=== PATIENT | female | born 1955 | race Caucasian/White ===

== ENCOUNTER → 2023-11-23 09:23 | Outpatient (REF) | payer MEDICARE, OTHER, SELFPAY | LOC: HWRAD 09:23 | PROVIDERS: ATTENDING PHYSICIAN Physician Assistant; FAMILY PHYSICIAN Family Medicine | DX: R10.11 Right upper quadrant pain (principal) | CPT/HCPCS: 76700 ==

== ENCOUNTER → 2023-11-27 15:02 | Outpatient (REF) | payer MEDICARE, OTHER, SELFPAY | LOC: RAD 15:02 | PROVIDERS: ATTENDING PHYSICIAN Family Medicine | DX: G45.9 Transient cerebral ischemic attack, unspecified (principal); R47.01 Aphasia; R09.89 Other specified symptoms and signs involving the circulatory and respiratory systems | CPT/HCPCS: 93880 ==

== ENCOUNTER 2023-12-03 05:51 | Inpatient (IN) | payer MEDICARE, OTHER, SELFPAY ==
[2023-12-03] VITALS (24 sets, daily range): BP systolic 88–130; BP diastolic 53–85; BMI 22.9; BMI 23.7
--- NOTE | 2023-12-03 06:58 | W.SUR.PREOP ---
Pre-Operative Surgical Note
-
I have examined this patient prior to the performance of the scheduled procedure.
The patient's condition is unchanged from the time of the current History and
Physical and the patient is able to undergo the scheduled procedure.
[2023-12-03 07:04] LABS: Hematocrit 42.8 % (37.0-47.0); Hemoglobin 14.9 g/dL (12.0-16.0); Mean Corp Hgb Conc. 34.8 g/dL (33.0-37.0); Mean Corpuscular Hgb 29.9 pg (27.0-31.0); Mean Corpuscular Volume 85.8 fL (81.0-99.0); Mean Platelet Volume 10.7 fL (7.4-10.4); Platelet Count 191 10^3/uL (130-400); Red Blood Cell Count 4.99 10^6/uL (4.20-5.40); Red Cell Dist. Width 12.7 % (11.5-14.5); White Blood Cell Count 7.7 10^3/uL (4.8-10.8)
[2023-12-03 07:05] LABS: INR 1.01; PT 13.1 Sec (11.4-14.6)
[2023-12-03] MEDS: BACTROBAN NASAL 1 GRAM NASAL (07:14)
[2023-12-03 07:51] LABS: Blood Urea Nitrogen 15 mg/dl (7-17); Calcium 9.7 mg/dl (8.4-10.2); Carbon Dioxide 24 mmol/L (22-30); Chloride 106 mmol/L (98-107); Estimated Creatinine Clearance 63 ml/min; Glucose 103 mg/dl (70-99); Potassium 4.6 mmol/L (3.5-5.1); Sodium 135 mmol/L (135-145); eGFR > 60.00
--- NOTE | 2023-12-03 09:22 | W.SUR.POST ---
Surgical Immediate Post Op
Note
Pre Op Diagnosis: Carotid stenosis
Post Op Diagnosis: Same
Procedure Performed: Left carotid endarterectomy with bovine pericardial patch angioplasty and EEG monitoring
Primary Surgeon: Kit
Assist: Alissa ROTH
Anesthesia: General
Estimated Blood Loss: 10cc
Fluids: See anesthesia flow sheet
Drains/Shunts: None
Specimens/Cultures: Left carotid plaque
Doppler/Duplex/Angio (Y/N): Y
Complications: None
Operative Findings: Woke from anesthesia moving all extremities
--- NOTE | 2023-12-03 09:27 | OR.RPT ---
Operative Report
Operative Report
PROCEDURE DATE: 12/03/2023
Preoperative diagnosis: Symptomatic left carotid artery critical stenosis.
Postoperative diagnosis: Same
Procedure: Left carotid endarterectomy with bovine pericardial patch angioplasty and intraoperative EEG/SSEP monitoring.
Surgeon: Kit
Electric Razor Assembler: JOSÉ Maxwell required for all aspects of procedure including assistance with traction/countertraction, following of suture line, assistance with closure.
Complications: None
Anesthesia: General
Indications for procedure:
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 Risk/benefits/alternatives of expedient revascularization were all fully discussed. Patient understood all wish to
proceed with left carotid endarterectomy.
Description of procedure:
Patient was identified brought to the operating room placed on the table in supine position. After the adequate administration of anesthesia and perioperative antibiotics she was prepped and draped in the standard surgical fashion. A standard
preoperative timeout was undertaken and everybody was in agreement the plan. A standard longitudinal incision was made in the left neck that was carried through the skin subcutaneous tissue. Using the electrocautery dissection was carried through
the platysma muscle layer and then alongside the anterior medial border of the sternocleidomastoid muscle. Then using a combination of sharp dissection with the Metzenbaum scissors and electrocautery I dissected along the anterior medial border of
the internal jugular vein. The common facial vein branch was ligated between silk ties and then divided. I then deepened my retraction. The common carotid artery was identified and carefully dissected away from the surrounding structures take
great care to avoid any injury to the structures. A vessel loop was passed around it which was double looped, but not yet tightened. Note the vagus nerve was not directly visualized as I dissected directly on the common carotid artery, but care
was taken to avoid any dissection or injury in this vicinity. I then continued my dissection up the common carotid artery to the bulb staying only on the anterior surface of the carotid artery. Note, hide identified on preoperative imaging that
the bifurcation was relatively low in the neck. And that is what I found here. Then I carried the dissection up to the internal carotid artery and then to the more distal internal carotid artery. I identified where it was soft and carefully
circumferentially dissected the internal carotid artery with minimal mobilization and passed a vessel loop around it. Note the hypoglossal nerve was not directly visualized in this field, but it was relatively low in the neck that we were
dissecting. In addition, great care was taken to avoid over dissection or any injury in the vicinity of where the nerve would be. The patient was given an appropriate dose of heparin 6000 units. Next I dissected the anterior surface of the
external carotid artery and superior thyroid branches. These were then carefully circumferentially dissected with minimal mobilization and vessel loops passed around these which were double looped but not yet tightened. After 3 minutes of heparin
circulation time and confirmation of optimization of the blood pressure with my anesthesiology colleagues, I clamped the distal internal carotid artery where it was soft. There was no immediate EEG or SSEP changes. After 1 minute of test clamp
time there was no changes noted. Therefore at this point, the vessel loops on the external carotid artery and superior thyroid branches were tightened and the common carotid artery was clamped where it was soft proximally. An arteriotomy was made
on the common carotid artery with an 11 blade and extended using a Marie scissor. I extended the arteriotomy onto the mid to distal internal carotid artery. As noted on the CT scan, at the distal bulb and extending onto the very origin of the
internal carotid artery, there was mixed plaque with hemorrhagic central component. This resulted in a focal high-grade stenosis. More distally, there was slight thickening on the internal carotid artery posterior wall of the intima. A Irving was
then used to endarterectomized the plaque. An endarterectomy plane was created, and the plaque was then endarterectomized. Distally I was able to end the endarterectomy on the internal carotid artery. The posterior wall as noted was still
slightly thickened. I did extend my arteriotomy and move my clamp more cephalad as well to allow this. However I could see that the thickening extended all the way up. Therefore I settled for this endpoint as there is no significant residual
plaque or stenosis. Next I endarterectomized the intima back to normal intima in the common carotid artery, and the intima was cut flush there. I then grasped the plaque and everted plaque out of the origin of the external carotid artery. The
plaque was then sent off for specimen. The origin of the external carotid artery was carefully visualized and any fine debris were removed with fine forceps. Proximal and distal endpoints were then carefully inspected. Any fine debris was removed
with fine forceps, and the intima was noted to be nicely adherent proximally distally. Next any fine debris were removed throughout the endarterectomy bed with fine forceps. Interrupted 7-0 Prolene tacking sutures were placed to tack the distal
endpoint (3 sutures were placed). I then flushed heparinized saline. I was very satisfied. Then, I used a bovine pericardial patch to sew a patch angioplasty with a running 6-0 Prolene suture. Prior to completing and tying down my suture line, I
backbled sequentially each branch and reclamped each branch prior to unclamping the next branch. I then irrigated with heparinized saline. Then I completed and tied down my suture line. We then restored flow in the common carotid and external
carotid arteries. Finally, we released our clamp in the internal carotid artery. There was excellent pulsatile flow in all 3 vessels. There was an excellent Doppler signal in the internal carotid artery distal to the patch with a good normal low
resistance Doppler signal. There was a good Doppler signal in the external carotid artery as well. Three 6-0 Prolene [id number] sutures were placed along any bleeding points along the suture line. Protamine was given to reverse the heparin.
Hemostasis was completely achieved. We then irrigated and confirmed full hemostasis. We then closed in layers with 2-0 Vicryl layer to reapproximate the sternocleidomastoid muscle, followed by 3-0 Vicryl platysma muscle running layer, followed by 4
Monocryl subcuticular stitch. Dermabond was applied. The patient tolerated procedure well. She awoke moving all extremities to command with tongue in the midline.
[2023-12-03 09:58] LABS: Hematocrit 36.9 % (37.0-47.0); Hemoglobin 12.7 g/dL (12.0-16.0); Mean Corp Hgb Conc. 34.4 g/dL (33.0-37.0); Mean Corpuscular Hgb 29.8 pg (27.0-31.0); Mean Corpuscular Volume 86.6 fL (81.0-99.0); Mean Platelet Volume 9.7 fL (7.4-10.4); Platelet Count 200 10^3/uL (130-400); Red Blood Cell Count 4.26 10^6/uL (4.20-5.40); Red Cell Dist. Width 12.8 % (11.5-14.5); White Blood Cell Count 12.2 10^3/uL (4.8-10.8)
[2023-12-03 10:03] LABS: INR 1.13; PT 14.4 Sec (11.4-14.6)
[2023-12-03 10:04] LABS: APTT 28.1 Sec (23.4-35.0)
[2023-12-03] MEDS: SUBLIMAZE 25 MCG IV (10:04)
[2023-12-03 10:08] LABS: Blood Urea Nitrogen 13 mg/dl (7-17); Calcium 8.6 mg/dl (8.4-10.2); Carbon Dioxide 18 mmol/L (22-30); Chloride 108 mmol/L (98-107); Estimated Creatinine Clearance 73 ml/min; Glucose 133 mg/dl (70-99); Potassium 4.1 mmol/L (3.5-5.1); Sodium 134 mmol/L (135-145); eGFR > 60.00
[2023-12-03] MEDS: NSS 1000 IV (10:10)
--- NOTE | 2023-12-03 10:55 | CON.INTV ---
Consultation
Consultation Request
Date/Time Consultation Requested: 12/03/2023 - 923
Date/Time Consultation Performed: 12/03/2023 - 1049
Requesting Provider: GONZALEZ Crawley
Performing Provider: Tanmay Healy MD
Reason for Consultation: s/p CEA
Medical History
-
Chief Complaint: s/p left CEA
History of Present Illness:
68-year-old female former tobacco smoker with a past medical history of ulcerative colitis, hypothyroidism and hyperlipidemia who presents with elective left-sided carotid endarterectomy. Patient known to vascular surgery and saw Dr. Pantoja on
11/30/2023. At that appointment patient discussed left carotid artery stenosis which was severe. Patient also symptomatic. Patient agreed to surgical intervention. Today she underwent left carotid endarterectomy with bovine pericardial patch
angioplasty. Patient underwent procedure with no immediate complications and EBL was 10 mL. She was transferred to the ICU postoperatively and director export service is now consulted for additional management/recommendations.
When I saw the patient she was in bed, in no acute distress with family members at bedside. BP 106/70, heart rate 72 and she is saturating 95% on room air. She has some pain at the postoperative site of her left neck but no headache, chest pain,
shortness of breath, fevers or chills.
PMHx: Ulcerative colitis, hypothyroidism, hyperlipidemia, history of diverticulitis
PSHx: Tubal ligation, skin cancer removal, cataracts, rectal and bladder prolapse surgery (2015)
Past Medical History
Past Medical History: Other (Above as per HPI)
Past Surgical History: Other (Above as per HPI)
Social History
Tobacco: Former Smoker
Alcohol: None
Drug: None
Family History
Family History: CAD (Father)
Allergies / Home Medications
Allergies
Allergy/AdvReac Type Severity Reaction Status Date / Time
Sulfa (Sulfonamide Allergy Rash Verified 12/03/23 05:47
Antibiotics)
sulfisoxazole Allergy Rash Verified 12/03/23 05:47
Home Medications
�Medication �Instructions �Recorded �Confirmed �Last Taken �Type
Bifidobacterium infantis 4 mg 1 cap PO QPM 01/29/15 01/29/15 12/02/23 17:00 History
capsule (Align)
levothyroxine 125 mcg tablet 125 mcg PO DAILY 01/29/15 12/03/23 12/03/23 05:00 History
mesalamine 1.2 gram tablet,delayed 2.4 grams PO DAILY 01/29/15 01/29/15 12/02/23 10:00 History
release (Lialda)
aspirin 81 mg chewable tablet 81 mg PO DAILY 12/03/23 12/03/23 05:00 History
Review of Systems
-
History Source: Patient
All other systems: Negative unless noted
Vitals / Labs / Diagnostic Testing
Vital Signs
Temp Pulse Resp BP Pulse Ox
97.7 F 87 14 109/73 95
12/03/23 11:15 12/03/23 13:30 12/03/23 13:30 12/03/23 13:15 12/03/23 13:30
Lab Data
12/03/23 09:44
12/03/23 09:44
Laboratory Results
12/03/23 12/03/23
06:39 09:44
PT 13.1 14.4
INR 1.01 1.13
APTT 28.1
Diagnostic Testing:
Physical Exam
-
HEENT: Normocephalic, Anicteric and Other (Incision seen on left anterior neck with no exsanguination or purulence appreciated)
Cardiovascular: S1/S2 and Peripheral Edema (negative)
Respiratory: Clear, Wheeze (negative), Rales (negative), Rhonchi (negative) and Non-Labored Respirations
GI: Soft, Non Distended and Non Tender
Neurology: Awake and Alert
Skin: Warm and Dry
General: Respiratory Distress (negative) and Comfortable
Assessment
-
Assessment: 68-year-old female former tobacco smoker with a past medical history of ulcerative colitis, hypothyroidism and hyperlipidemia who presents with elective left-sided carotid endarterectomy. Patient known to vascular surgery and saw "Didier"Kit on 11/30/2023. At that appointment patient discussed left carotid artery stenosis which was severe. Patient also symptomatic. Patient agreed to surgical intervention. On 12/03/2023, she underwent left carotid endarterectomy with bovine
pericardial patch angioplasty. Patient underwent procedure with no immediate complications and EBL was 10 mL. She was transferred to the ICU postoperatively and director export service is now consulted for additional management/recommendations.
Chronic conditions PRODUCTION ILLUSTRATOR:
Ulcerative colitis, hypothyroidism, hyperlipidemia, history of diverticulitis
Impression:
#Severe left-sided carotid artery stenosis s/p CEA (POD #0)
#Leukocytosis � likely reactive due to above
#Mild hyponatremia
#Mild metabolic acidosis
#Ulcerative colitis
Plan:
Postoperative surgical intensive care unit monitoring
Supplemental oxygen as needed
Maintain MAP >65
Incentive spirometry encouraged
Aspiration precautions
Maintain SpO2 >90-94%
Trend serum sodium level and serum bicarbonate
Replete electrolytes with K>4, Mg>2
Maintain euglycemia with goal BG 140-180
Neuro and vascular checks per protocol
Vascular surgery following-correspondence and operative notes reviewed
Resume mesalamine, her home medication
DVT prophylaxis
Early nutrition
Early mobilization
Critical care statement: A total of 44 minutes of critical care time was provided for this patient today. This includes management of unstable vital signs, evaluation of the patient at bedside, reviewing the patient's pertinent medical records
including radiographs, microbiology, laboratory evaluations, and discussion with primary team, consultants, pharmacy, nutrition, physical therapy, case management, charge nurse, critical care nursing, and respiratory therapy.
Data:
CXR 12-03-2023: No acute cardiopulmonary process.
--- NOTE | 2023-12-03 12:00 | PTCARENOTE ---
Rec'd pt at 1100 via bed from PACU. Rec'd pt awake alert and oriented. Speech is clear. Smile is even and tongue protudes midline. LACEY at 2mm. Denies blurred vision or headache/dizziness. NOLASCO. Pt admits to some chronic R arm heaviness/weakness but
none noted currently. Skin is pink wm and dry. L neck incision is approximated with surgical adhesive present. No swelling or drainage. Ice in place x20 min. Respirs are unlabored on RA. Lungs are clear. Monitor SR. + pulses. No edema.R radial A
line is intact. Site wnl. Good CMS checks to distal extrem. Runs about 15-20 mm/hg higher than cuff BP. Zeroed and recalbrated. Waveform as documented. Abd is soft with sl hypoactive BS. Denies nausea. Denies need to void. IV NS infusing at 80 ml/hr
via R AC IV Site. Capped int intact L AC. Family in and updated. Call quiroz in reach. Plan of care reviewed with family and pt
[2023-12-03] MEDS: ROXICODONE 5 MG PO ×2 (12:30→19:54)
--- NOTE | 2023-12-03 12:30 | PTCARENOTE ---
Medicated with Roxicodone 5 mg po for c/o L neck and L tooth soreness. No other changes. L neck incision site is wnl
--- NOTE | 2023-12-03 13:45 | PTCARENOTE ---
Resting, states neck and tooth discomfort are better since the Oxy. Down to a 2. Overall good toleration of clear liquids. Denies nausea. VS as noted.
--- NOTE | 2023-12-03 13:50 | W.PV.INTER ---
VPI Note
Pre Admission Note
Functional Status: Light Work
Ambulation: Ambulate Independently
Pre Op Medications
Pre Op ASA: Yes
Pre Op Statin: No
Pre Op OMAR Inhibitor/ARB: No
Pre Op P2y12 Antagonist: None
Pre Op Beta Blockers: No
Pre Op Chronic Anticoagulant: None
Pre Op Cilostazol: No
Post Op Medications
Post Op ASA: Yes
Post Op Statin: Yes
Post Op OMAR Inhibitor/ARB: No
Post Op P2y12 Antagonist: None
Post Op Beta Blockers: No
Post Op Chronic Anticoagulant: None
Post Op Cilostazol: No
Modified Liberty
Pre Op: 0
Post Op: 0
[2023-12-03 14:56] LABS: ALT (SGPT) 20 U/L (0-35); AST (SGOT) 27 U/L (14-36); Albumin 3.5 g/dl (3.5-5.0); Alkaline Phosphatase 92 U/L (38-126); Direct Bilirubin 0.4 mg/dl (0.0-0.4); Total Bilirubin 0.4 mg/dl (0.2-1.3); Total Protein 5.8 g/dl (6.3-8.2)
[2023-12-03] MEDS: NON-FORMULARY ITEM PO (15:21)
[2023-12-03] MEDS: NON-FORMULARY ITEM 3 UNIT PO (15:24)
[2023-12-03] MEDS: HEPARIN 5000 UNITS SC (16:15)
--- NOTE | 2023-12-03 16:30 | PTCARENOTE ---
Voided on the bedpan around 1400 for 100 mls of urine. Tried to use the bedpan again as she felt she had to void but no urine output. Bladder scanned for [address] for 415 mls of yellow urine. Repositioned. Overall assessment is
unchanged. A line BP is consistently >100 will dip to the lower 100's with dozing but comes up to the 110-115 range when awake. Cuff BP tends to run about 10 -15 mm/hr lower. Neuro assessment is unchanged. L neck incision is intact-site wnl. No
drainage. Ice to incision per orders for 20 min q2hs. Call quiroz in reach. States she doesn't need anything for pain currently
[2023-12-03] MEDS: LIPITOR 10 MG PO (17:46)
--- NOTE | 2023-12-03 18:30 | PTCARENOTE ---
Assessment is unchanged. Ready to eat dinner. No complaints offered
--- NOTE | 2023-12-03 20:00 | PTCARENOTE ---
Rec'd pt from previous shift s/p Left CEA, alert/oriented/appropriate, NOLASCO 5/5 GCS 15 PERRLA 3. Pain controlled with PRN Roxicodone. Surgical skin glue CDI. Ice offered. Bedrest overnight, q1h neuro checks. Afebrile. NSR with SB when asleep. Lincoln if
needed to maintain SBP 100-150. Pulses palpable, no edema. Art line flushed/zero'd. Room air, lungs clear, 96%. Tolerating low cholesterol diet. Bladder scan as needed. Will monitor.
[2023-12-03] MEDS: NEO-SYNEPHRINE 250 IV (20:52)
[2023-12-04] VITALS (13 sets, daily range): BP systolic 95–131; BP diastolic 54–85; BMI 23.9
[2023-12-04] MEDS: NSS 1000 IV (00:30)
[2023-12-04] MEDS: HEPARIN 5000 UNITS SC ×2 (00:30→07:15)
--- NOTE | 2023-12-04 01:00 | PTCARENOTE ---
No change in previous assessment. Pt resting comfortably at this time. PRN Sania as needed for pain. Will monitor
[2023-12-04 04:26] LABS: Hematocrit 34.6 % (37.0-47.0); Hemoglobin 11.9 g/dL (12.0-16.0); Mean Corp Hgb Conc. 34.4 g/dL (33.0-37.0); Mean Corpuscular Hgb 29.6 pg (27.0-31.0); Mean Corpuscular Volume 86.1 fL (81.0-99.0); Platelet Count 264 10^3/uL (130-400); Red Blood Cell Count 4.02 10^6/uL (4.20-5.40); Red Cell Dist. Width 12.7 % (11.5-14.5); White Blood Cell Count 17.5 10^3/uL (4.8-10.8)
[2023-12-04 04:40] LABS: INR 1.15; PT 14.5 Sec (11.4-14.6)
[2023-12-04 04:41] LABS: APTT 29.8 Sec (23.4-35.0)
[2023-12-04 04:48] LABS: Blood Urea Nitrogen 10 mg/dl (7-17); Calcium 9.3 mg/dl (8.4-10.2); Carbon Dioxide 18 mmol/L (22-30); Chloride 112 mmol/L (98-107); Estimated Creatinine Clearance 73 ml/min; Glucose 108 mg/dl (70-99); Potassium 4.6 mmol/L (3.5-5.1); Sodium 136 mmol/L (135-145); eGFR > 60.00
[2023-12-04] MEDS: SYNTHROID 125 MCG PO (05:33)
[2023-12-04 05:36] LABS: Hepatitis C Antibody Negative (Negative)
[2023-12-04] MEDS: LOW STRENGTH ASPIRIN 81 MG PO (07:15)
[2023-12-04] MEDS: NON-FORMULARY ITEM 3 UNIT PO (07:16)
--- NOTE | 2023-12-04 07:28 | W.PN.VS ---
Addendum entered and electronically signed by Tristin Pantoja MD 12/04/23 10:29:
Seen and examined with REBAR FABRICATOR. Agree with findings as noted below. Patient without significant complaints. Left neck incision clean dry and intact, no hematoma. Neurologically no focal deficits, moves all extremities well. Plan/as discussed and
noted below.
Original Note:
Today's Communication / Plan
-
Seen and assessed with Dr. Pantoja
Assessment/Plan
-
POD 1 left CEA
Plan:
-DC A-line
-DC IV fluids
-Wean off johnson
-Ambulate/out of bed
-Increase diet
-Possible DC later today
Subjective Data
-
Date of Service: December 04, 2023
Patient seen at bedside this a.m. with Dr. Pantoja. Patient offers no complaints at this time. Patient was straight cathed overnight for retention.
Objective Data
-
Vital Signs
Temp Pulse Resp BP Pulse Ox
98.0 F 59 14 95/60 93
12/04/23 03:35 12/04/23 06:00 12/04/23 06:00 12/04/23 06:00 12/04/23 06:00
Intake and Output
12/03/23 12/04/23 12/05/23
06:59 06:59 06:59
Intake Total 2396 / 2396
Output Total 1040 / 1040
Balance 1356 / 1356
Intake:
Oral fluids 500 / 500
IV fluids (Total) 1896 / 1896
JOHNSON 96 / 96
NSS 1800 / 1800
Output:
Urine, Voided 275 / 275
Straight cath output 765 / 765
Lab Results
12/04/23 03:51
12/04/23 03:51
Calcium 9.3 mg/dl (8.4-10.2) 12/04/23 03:51
Total Bilirubin 0.4 mg/dl (0.2-1.3) 12/03/23 09:44
Direct Bilirubin 0.4 mg/dl (0.0-0.4) 12/03/23 09:44
AST 27 U/L (14-36) 12/03/23 09:44
ALT 20 U/L (0-35) 12/03/23 09:44
Alkaline Phosphatase 92 U/L (38-126) 12/03/23 09:44
Total Protein 5.8 g/dl (6.3-8.2) L 12/03/23 09:44
Albumin 3.5 g/dl (3.5-5.0) 12/03/23 09:44
Physical Exam
-
AAOx3
No tachypnea
No tachycardia
Abdomen soft
Neck site clean, dry, intact, and soft
Moves all extremities equally
Tongue midline
--- NOTE | 2023-12-04 07:58 | W.PN.INTV ---
Today's Communication / Plan
Recommendations
Up OOB as tolerated
Pain control
Maintain SpO2 >90-94%
Patient is awaiting to be discharged home. Site Promotion Agent/pulmonary service will now sign off. Please reconsult if there are any additional questions/concerns, or if patient's respiratory status deteriorates.
Assessment
-
Assessment: 68-year-old female former tobacco smoker with a past medical history of ulcerative colitis, hypothyroidism and hyperlipidemia who presents with elective left-sided carotid endarterectomy. Patient known to vascular surgery and saw
Kit on 11/30/2023. At that appointment patient discussed left carotid artery stenosis which was severe. Patient also symptomatic. Patient agreed to surgical intervention. On 12/03/2023, she underwent left carotid endarterectomy with bovine
pericardial patch angioplasty. Patient underwent procedure with no immediate complications and EBL was 10 mL. She was transferred to the ICU postoperatively and oral surgeon service is now consulted for additional management/recommendations.
Chronic conditions MANAGER RADIATION:
Ulcerative colitis, hypothyroidism, hyperlipidemia, history of diverticulitis
Impression:
#Severe left-sided carotid artery stenosis s/p CEA (POD #1)
#Leukocytosis � likely reactive due to above
#Mild hyponatremia - resolved
#Mild metabolic acidosis
#Ulcerative colitis
Plan:
Hemodynamically and neurovascularly intact
Wean supplemental oxygen
Incentive spirometry encouraged
Aspiration precautions
Maintain SpO2 >90-94%
Trend serum sodium level and serum bicarbonate
Replete electrolytes with K>4, Mg>2
Maintain euglycemia with goal BG 140-180
Monitor hemoglobin
Transfuse if needed
Monitor blood sugars
Insulin supplementation if needed
Neuro and vascular checks per protocol also continue
Post-op management as per vascular surgery
DVT prophylaxis recommended
Nutrition
Increase activity/physical therapy
Patient is awaiting to be discharged home. Site Promotion Agent/pulmonary service will now sign off. Thank you for allowing us to be involved in the care of this patient. Please reconsult if there are any additional questions/concerns, or if patient's
respiratory status deteriorates.
I personally reviewed the patient's pertinent medical records including radiographs, microbiology, laboratory evaluations, and discussion with primary team, consultants, pharmacy, nutrition, physical therapy, case management, charge nurse, critical
care nursing, and respiratory therapy.
Total time spent today was 40 minutes for this encounter. Time includes reviewing laboratory test/imaging results, reviewing pertinent medical records, obtaining and reviewing medical history, performing an appropriate exam, ordering medications,
tests and procedures. Time also includes documentation of this encounter, coordinating patient care and communicating with other healthcare professionals. Total time does not include separately billed tests performed on this date of service.
Data:
CXR 12-03-2023: No acute cardiopulmonary process.
Subjective Dataa
Subjective Data
Date of Service:
Date of Service: December 04, 2023
Chief Complaint: Site Promotion Agent Follow Up
Subjective:
No overnight events. Pt has no complaints, no headache, no fevers/chills, SOB or chest pain.
Review of Systems
General: Other (Negative unless mentioned above)
Objective Data
Data Reviewed
Vital Signs / I&O / Oxygen:
Vital Signs
Temp Pulse Resp BP Pulse Ox
98.1 F 89 19 105/65 94
12/04/23 08:11 12/04/23 10:00 12/04/23 10:00 12/04/23 10:00 12/04/23 09:00
Intake and Output
12/03/23 12/04/23 12/05/23
06:59 06:59 06:59
Intake Total 2396 / 2482 169 / 169
Output Total 1040 / 1040 150 / 150
Balance 1356 / 1442
SaO2 94
Nasal Cannula flow liters per 2
minute
Physical Exam
General: Respiratory Distress (negative) and Comfortable
HEENT: Normocephalic, Anicteric and Other (Incision seen on left anterior neck with no exsanguination or purulence appreciated)
Cardiovascular: S1-S2 and Peripheral Edema (negative)
Respiratory: Clear, Wheeze (negative), Crackles (negative), Rhonchi (negative) and Non-Labored Respirations
GI: Soft, Non Distended and Non Tender
Neurology: AO x 3
Skin: Warm and Dry
Labs/Micro/Reports
Lab Data
12/04/23 03:51
12/04/23 03:51
Laboratory Results
12/04/23
03:51
PT 14.5
INR 1.15
APTT 29.8
--- NOTE | 2023-12-04 08:20 | PTCARENOTE ---
R radial a-line removed after loyd weaned off. Neuro checks continue as noted. Pt OOB, ambulated independently to bathroom, ADLs completed. Voided without issue. Sitting in chair with daughter at bedside.
--- NOTE | 2023-12-04 09:11 | CM ---
CM following re: discharge planning.
Reviewed pt's chart, met with pt.
Pt is a 68 year old female, admitted with primary dx of POD 1 left CEA.
Pt reports she lives with in a 2SH, 2 steps to enter, has 2 supportive daughters. 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 pt is aware she does not allow for 2 weeks post discharge.
According to MD pt will be discharge home today. Pt is aware, expressed her agreement with discharge and she stated her will transport her home. IMM reviewed, placed in chart, pt has a copy.
PCP: Alexy Wilson
Pharmacy: [facility]
D/C plan: home with no needs. to transport
[2023-12-04] MEDS: TYLENOL 650 MG PO (13:09)
--- NOTE | 2023-12-04 13:23 | PTCARENOTE ---
Discharge orders received. IVs removed with cath intact. Family at bedside.Discharge instructions reviewed.
--- NOTE | 2023-12-04 14:01 | PTCARENOTE ---
Pt escorted off ICU in wheelchair with daughter to waiting car without issue. Copy of instructions with patient
--- NOTE | 2023-12-12 12:08 | W.DCSUMMARY ---
Discharge Summary
Discharge Data
Date of Admission: 12/03/23
Date of Discharge: 12/04/23
-
Pending Results: No
Hospital Course
Attending: Kit
Consultants: Pulmonary medicine
Allergies: sulfa
Procedure with date: 12/03/2023: Left carotid endarterectomy with bovine pericardial patch angioplasty and intraoperative EEG monitoring
History of present illness: The patient is an 68-year-old female with multiple medical conditions including: carotid stenosis, hypothyroidism, ulcerative colitis, hyperlipidemia, GERD, diverticulitis, rectal and bladder prolapse skin cancer, tubal
ligation, cataracts. Patient presented on 12/03/2023 for scheduled procedure with Dr. Pantoja. Patient presented at baseline health with no reports of recent illness or trauma.
Hospital Course: Briefly, the patient underwent scheduled CEA without complications, and recovered in PACU. Following recovery phase one and two patient was transferred to intensive care unit per protocol for continued hemodynamic monitoring.
Tractor Technician consulted to aid in medical management from a critical care perspective. POD #1 (12/04/2023) Patient neurologically intact, face symmetrical, and tolerating PO diet. Surgical neck site clean, dry, and intact with suture line well
approximated and soft. No evidence of hematoma. Arterial line and IV fluids discontinued. Patient able to ambulate without difficulty or incident. Patient stable for discharge to home.
Prescriptions and follow up appointment are included in the DC summary retread operator note. All instructions were given to the patient in both written and verbal form and the patient expressed understanding.
Discharge Plan
-
Patient Disposition: Home (Routine Discharge)
Discharge Diagnosis/Procedures: Left carotid endarterectomy
Condition: Good
Diet: As tolerated
Activity: No strenuous activity
Driving Restrictions: Not until seen by your Dr
Bathing Restrictions: OK to Shower
Others Tests: LFT lab draw within 2 months, PCP will follow up for initiation of statin therapy
Activity Restrictions/Additional Instructions:
If you experience severe constant headache, weakness to an arm or leg, change in vision, trouble speaking or any stroke-like symptom, call 911 immediately
If you experience swelling, increased bruising, drainage from neck site, or fever, please call the office
Stand Alone Forms: DC Instr - Vascular OR
Referrals:
Judy Guerrero PA-C [Specified Professional Personl] - 12/18/23 9:30 am
Alexy Wilson MD [Family Provider] - in one to two months (Please call for follow up appt for initiation of statin therapy)
Prescriptions:
New
atorvastatin 10 mg Tablet
10 mg PO QPM Qty: 90 0RF
Continued
mesalamine [Lialda] 1.2 GM tablet,delayed release (DR/EC)
3.6 grams PO DAILY
Align 4 MG capsule
1 cap PO QPM
aspirin 81 mg Tablet,Chewable
81 mg PO DAILY
levothyroxine 112 mcg Tablet
112 mcg PO DAILY
Discharge Orders:
Discharge Patient (As Directed); Ordered 12/04/23
Ordered By: Edelmira Maxwell
Discharge Date and Time
Discharge Date/Time: 12/04/23 13:50
Print Language: WOLOF
== END 2023-12-04 13:50 | disposition home or self-care (01) | DRG 38 ==
LOC: ICU 05:51
PROVIDERS: Nurse Practitioner Acute Care; ADMITTING PHYSICIAN Surgery Vascular Surgery; CONSULT PHYSICIAN Internal Medicine Critical Care Medicine; FAMILY PHYSICIAN Family Medicine
PROC: 03CL0ZZ Extirpation of Matter from Left Internal Carotid Artery, Open Approach (ICD-10-PCS; 2023-12-03)
PROC: 03UL0KZ Supplement Left Internal Carotid Artery with Nonautologous Tissue Substitute, Open Approach (ICD-10-PCS; 2023-12-03)
PROC: 03CN0ZZ Extirpation of Matter from Left External Carotid Artery, Open Approach (ICD-10-PCS; 2023-12-03)
PROC: 03CJ0ZZ Extirpation of Matter from Left Common Carotid Artery, Open Approach (ICD-10-PCS; 2023-12-03)
DX: I65.22 Occlusion and stenosis of left carotid artery (principal); E87.1 Hypo-osmolality and hyponatremia; E87.20 Acidosis, unspecified; K51.90 Ulcerative colitis, unspecified, without complications; Z87.891 Personal history of nicotine dependence; E03.9 Hypothyroidism, unspecified; E78.5 Hyperlipidemia, unspecified; R47.01 Aphasia
CPT/HCPCS: 88304; 35301; 71045; 80048; 80053; 82248; 85027; 85610; 85730; 86803; 86850; 86900; 86901; 93005; 95938; 95941

== ENCOUNTER → 2024-01-01 11:22 | Outpatient (REF) | payer MEDICARE, OTHER, SELFPAY | LOC: RAD 11:22 | PROVIDERS: ATTENDING PHYSICIAN Surgery Vascular Surgery; FAMILY PHYSICIAN Family Medicine; REFERRING PHYSICIAN Physician Assistant | DX: K55.1 Chronic vascular disorders of intestine (principal) | CPT/HCPCS: 74174; Q9967 ==

== ENCOUNTER → 2024-01-11 12:58 | Outpatient (REF) | payer MEDICARE, OTHER, SELFPAY | LOC: RAD 12:58 | PROVIDERS: ATTENDING PHYSICIAN Physician Assistant; FAMILY PHYSICIAN Family Medicine | DX: I65.22 Occlusion and stenosis of left carotid artery (principal) | CPT/HCPCS: 93880 ==

== ENCOUNTER → 2024-03-27 14:34 | Outpatient (REF) | payer MEDICARE, OTHER, SELFPAY | LOC: WDC 14:34 | PROVIDERS: ATTENDING PHYSICIAN Family Medicine | DX: Z12.31 Encounter for screening mammogram for malignant neoplasm of breast (principal) | CPT/HCPCS: 77063; 77067 ==

== ENCOUNTER → 2024-05-13 11:15 | Outpatient (REF) | payer MEDICARE, OTHER, SELFPAY | LOC: RAD 11:15 | PROVIDERS: ATTENDING PHYSICIAN Obstetrics & Gynecology; FAMILY PHYSICIAN Family Medicine | DX: R14.0 Abdominal distension (gaseous) (principal) | CPT/HCPCS: 76856 ==

== ENCOUNTER → 2024-07-17 10:42 | Outpatient (REF) | payer MEDICARE, OTHER, SELFPAY | LOC: RAD 10:42 | PROVIDERS: ATTENDING PHYSICIAN Registered Nurse | DX: I65.22 Occlusion and stenosis of left carotid artery (principal) | CPT/HCPCS: 93880 ==

== ENCOUNTER → 2025-01-27 14:28 | Outpatient (REF) | payer MEDICARE, OTHER, SELFPAY | LOC: RAD 14:28 | PROVIDERS: ATTENDING PHYSICIAN Surgery Vascular Surgery; FAMILY PHYSICIAN Family Medicine | DX: I65.22 Occlusion and stenosis of left carotid artery (principal) | CPT/HCPCS: 93880 ==

== ENCOUNTER → 2025-04-16 13:58 | Outpatient (REF) | payer MEDICARE, OTHER, SELFPAY | LOC: RAD 13:58 | PROVIDERS: ATTENDING PHYSICIAN Nurse Practitioner Family; FAMILY PHYSICIAN Family Medicine | DX: R10.2 Pelvic and perineal pain (principal); R91.1 Solitary pulmonary nodule; Z87.891 Personal history of nicotine dependence | CPT/HCPCS: 71250; 76830; 76856 ==